=== PATIENT | male | born 1950 | race African-American/Black ===

== ENCOUNTER 2019-06-11 18:26 | Emergency (ER) | payer MEDICARE, OTHER ==
[~2019-06-11] VITALS: Ht 180.3 cm; Wt 103.0 kg
--- NOTE | 2019-06-11 18:48 | NUR ---
PT TO ROOM WITH STRONG, STEADY GAIT. DRESSED IN GOWN. ATTACHED TO MONITORS. PT MADE AWARE OF NEED FOR URINE SAMPLE. VERBALIZES UNDERSTANDING. DENIES ANY NEEDS OR CONCERNS AT THIS TIME. CALL LIGHT IN REACH.
--- NOTE | 2019-06-11 19:00 | NUR ---
REPORT FROM YOAN THOMAS. PT SITTING UP IN [facility] NOTED. PT DENIES PAIN AT THIS TIME BUT ENDORSES INCREASED URGENCY/FREQUENCY X SEVERAL DAYS. PT ADMITS RECENT UNPROTECTED SEX BUT DENIES PENIAL DC/OPEN SORES. PT REPORTS LAST STD CHECK IN WITH NEGATIVE RESULTS. PT AMBULATED STEADILY TO RESTROOM TO PROVIDE UA. UA & GC/CHLAM (UA) ORDERED AND SENT TO LAB. BP/SPO2 MONITORING IN PLACE.
[2019-06-11 19:24] LABS: MICROSCOPIC INDICATED
[2019-06-11 19:25] LABS: CULTURE INDICATED? NO
[2019-06-11] MEDS ORDERED: AZITHROMYCIN 250 MG TABLET ONE (19:37)
[2019-06-11] MEDS ORDERED: CEFTRIAXONE 250 MG ONE (19:37)
[2019-06-11 19:47] VITALS: BP 140/90
--- NOTE | 2019-06-11 19:48 | NUR ---
PT MEDICATED PER EMAR. AWAITING DC INSTRUCTIONS
[2019-06-11] MEDS ORDERED: AZITHROMYCIN 500 MG TABLET PO ONE (20:00)
[2019-06-11] MEDS ORDERED: CEFTRIAXONE 250 MG IM ONE (20:00)
--- NOTE | 2019-06-11 20:03 | NUR ---
NO S/S OF ABX RXN NOTED. DC EDUCATION PROVIDED, PT DEMONSTRATES UNDERSTANDING. PT AMBULATED STEADILY TO DC WITH RN
== END 2019-06-11 20:04 | disposition home or self-care (01) ==
LOC: ED 19:58
DX: R30.0 Dysuria (principal); I10 Essential (primary) hypertension
CPT/HCPCS: 81001; 87491; 87591; 96372; 99283; J0696

== ENCOUNTER 2019-07-25 17:25 | Emergency (ER) | payer MEDICARE, OTHER ==
[~2019-07-25] VITALS: Ht 180.3 cm; Wt 101.9 kg
[2019-07-25 17:32] VITALS: BP 139/89
--- NOTE | 2019-07-25 18:54 | NUR ---
report to Amy MILTON
--- NOTE | 2019-07-25 18:54 | NUR ---
Pt here for community resources. Pt reports no injuries. Pt reports he is concenre for his health and needs community resources.
== END 2019-07-25 19:13 | disposition home or self-care (01) ==
LOC: ED 18:55
DX: F32.9 Major depressive disorder, single episode, unspecified (principal); F43.0 Acute stress reaction; I10 Essential (primary) hypertension; E11.9 Type 2 diabetes mellitus without complications
CPT/HCPCS: 82962; 99284

== ENCOUNTER 2019-08-05 11:57 | Emergency (ER) | payer MEDICARE ==
[~2019-08-05] VITALS: Ht 180.3 cm; Wt 99.0 kg
[2019-08-05 12:47] VITALS: BP 118/75
--- NOTE | 2019-08-05 13:52 | NUR ---
RESTORATIVE CARE TECHNICIAN: PT WALKED BACK FROM LOBBY TO ROOM. STEADY UPON AMBULATION. NO ACUTE DISTRESS NOTED AT THIS TIME.
[2019-08-05] MEDS ORDERED: hydrOXyzine 10MG TABLET PO ONE (14:00)
== END 2019-08-05 14:26 | disposition home or self-care (01) ==
LOC: ED 14:20
DX: F41.1 Generalized anxiety disorder (principal); Z76.0 Encounter for issue of repeat prescription; E11.9 Type 2 diabetes mellitus without complications; I10 Essential (primary) hypertension; Z87.891 Personal history of nicotine dependence
CPT/HCPCS: 99283; Q0177; 99285

== ENCOUNTER 2019-12-28 14:39 | Emergency (ER) | payer MEDICARE ==
[~2019-12-28] VITALS: Ht 180.3 cm; Wt 102.2 kg
[~2019-12-28 14:39] MED LIST: ACET325T26 PO; CYCL-259 PO; DOXA2TAB PO; INSU100V8 SQ; LISI-167 PO; METF500T17 PO; METO25TA91 PO; OXYC5TAB2 BC
--- NOTE | 2019-12-28 15:15 | NUR ---
PT WITH C/O SUBSTERNAL CP BEGINNING AT 0200 THIS AM, PT STATES ITS "MORE OF A TIGHTNESS BUT THOUGHT WE COULD CHECK IT OUT HERE" PT DENIES SOB, PALPITATION. PT TO BP, CONT PULSE OX
[2019-12-28 15:32] LABS: BASOPHILS # (AUTO) 0.04 x10^3/uL (0-0.1); BASOPHILS % (AUTO) 1 % (0-1); EOSINOPHILS # (AUTO) 0.14 x10^3/uL (0-0.4); EOSINOPHILS % (AUTO) 2 % (1-7); LYMPHOCYTES # (AUTO) 1.94 x10^3/uL (1-3.4); LYMPHOCYTES % (AUTO) 29 % (22-44); MD NO; MEAN CORPUSCULAR HEMOGLOBIN 30.1 pg (27.5-34.5); MEAN CORPUSCULAR HGB CONC 33.1 g/dL (33.2-36.2); MEAN PLATELET VOLUME 7.9 fL (7.4-10.4); MONOCYTES # (AUTO) 0.53 x10^3/uL (0.2-0.8); MONOCYTES % (AUTO) 8 % (2-9); NEUTROPHILS % (AUTO) 61 % (42-75); PLATELET COUNT 297 x10^3/uL (130-400); RED BLOOD COUNT 4.72 x10^6/uL (4.38-5.82); RED CELL DISTRIBUTION WIDTH 13.2 % (9.4-14.8)
[2019-12-28 15:36] LABS: ALANINE AMINOTRANSFERASE 21 U/L (12-78); ALBUMIN 3.6 g/dL (3.4-5.0); ANION GAP 4 mmol/L (5-15); CALCIUM 8.9 mg/dL (8.5-10.1); CHLORIDE 110 mmol/L (98-107); CREATININE 1.37 mg/dL (0.7-1.3)
[2019-12-28 15:41] LABS: ALKALINE PHOSPHATASE 123 U/L (45-117); BILIRUBIN,TOTAL 0.5 mg/dL (0.2-1.0); TOTAL PROTEIN 7.3 g/dL (6.4-8.2); TROPONIN I < 0.015 ng/mL (0.000-0.045)
[2019-12-28 16:04] VITALS: BP 111/74
== END 2019-12-28 17:27 | disposition home or self-care (01) ==
LOC: ED 16:10
DX: R07.89 Other chest pain (principal); R05 Cough; I10 Essential (primary) hypertension; E11.9 Type 2 diabetes mellitus without complications; R94.31 Abnormal electrocardiogram [ECG] [EKG]; E78.00 Pure hypercholesterolemia, unspecified; E78.5 Hyperlipidemia, unspecified; Z95.0 Presence of cardiac pacemaker
CPT/HCPCS: 36415; 71046; 80053; 83735; 84484; 85025; 93005; 99285

== ENCOUNTER 2020-04-18 14:10 | Emergency (ER) | payer MEDICARE ==
[~2020-04-18] VITALS: Ht 175.3 cm; Wt 101.3 kg
[2020-04-18] MEDS ORDERED: KETOROLAC 30 MG/1 ML IM ONE (14:30)
[2020-04-18] MEDS ORDERED: KETOROLAC 30 MG/1 ML ONE (14:36)
[2020-04-18 14:41] LABS: MICROSCOPIC NOT IND
[2020-04-18 14:50] LABS: BASOPHILS % (AUTO) 0 % (0-1); EOSINOPHILS % (AUTO) 2 % (1-7); LYMPHOCYTES % (AUTO) 27 % (22-44); MEAN CORPUSCULAR HEMOGLOBIN 29.6 pg (27.5-34.5); MEAN CORPUSCULAR HGB CONC 32.8 g/dL (33.2-36.2); MEAN PLATELET VOLUME 7.8 fL (7.4-10.4); MONOCYTES % (AUTO) 8 % (2-9); NEUTROPHILS % (AUTO) 63 % (42-75); PLATELET COUNT 305 x10^3/uL (130-400); RED BLOOD COUNT 5.02 x10^6/uL (4.38-5.82); RED CELL DISTRIBUTION WIDTH 13.5 % (9.4-14.8)
[2020-04-18 14:54] LABS: MD NO
[2020-04-18 15:02] LABS: CHLORIDE 109 mmol/L (98-107)
[2020-04-18 15:08] LABS: ALANINE AMINOTRANSFERASE 21 U/L (12-78); ALBUMIN 3.8 g/dL (3.4-5.0); ALKALINE PHOSPHATASE 134 U/L (45-117); ANION GAP 6 mmol/L (5-15); BILIRUBIN,TOTAL 0.5 mg/dL (0.2-1.0); CALCIUM 8.9 mg/dL (8.5-10.1); CREATININE 1.35 mg/dL (0.7-1.3); TOTAL PROTEIN 7.6 g/dL (6.4-8.2)
[2020-04-18 16:08] VITALS: BP 154/56
== END 2020-04-18 16:13 | disposition home or self-care (01) ==
LOC: ED 15:41
DX: S29.012A Strain of muscle and tendon of back wall of thorax, initial encounter (principal); K80.20 Calculus of gallbladder without cholecystitis without obstruction; E11.9 Type 2 diabetes mellitus without complications; E78.5 Hyperlipidemia, unspecified; I10 Essential (primary) hypertension; Z95.0 Presence of cardiac pacemaker; X58.XXXA Exposure to other specified factors, initial encounter; Y93.89 Activity, other specified; Y92.89 Other specified places as the place of occurrence of the external cause; Y99.8 Other external cause status
CPT/HCPCS: 36415; 74176; 80053; 81003; 83690; 85025; 96372; 99284; J1885

== ENCOUNTER 2020-08-19 14:23 | Emergency (ER) | payer MEDICARE ==
[~2020-08-19] VITALS: Ht 180.3 cm; Wt 101.1 kg
[~2020-08-19 14:23] MED LIST changes: -CYCL-259 PO; +CYCL10TA2 PO
[2020-08-19] MEDS ORDERED: ASPIRIN 81 MG TABLET CHEW ONE (14:59)
[2020-08-19] MEDS ORDERED: ASPIRIN 81 MG TABLET CHEW PO ONE (15:00)
[2020-08-19 15:05] VITALS: BP 96/72
--- NOTE | 2020-08-19 15:06 | NUR ---
PT IN BED, ASP ADMIN
[2020-08-19 15:18] LABS: BASOPHILS % (AUTO) 1 % (0-1); EOSINOPHILS % (AUTO) 2 % (1-7); LYMPHOCYTES % (AUTO) 33 % (22-44); MEAN CORPUSCULAR HEMOGLOBIN 30.9 pg (27.5-34.5); MEAN CORPUSCULAR HGB CONC 34.4 g/dL (33.2-36.2); MEAN PLATELET VOLUME 7.6 fL (7.4-10.4); MONOCYTES % (AUTO) 10 % (2-9); NEUTROPHILS % (AUTO) 54 % (42-75); PLATELET COUNT 306 x10^3/uL (130-400); RED BLOOD COUNT 4.59 x10^6/uL (4.38-5.82); RED CELL DISTRIBUTION WIDTH 13.2 % (9.4-14.8)
[2020-08-19 15:19] LABS: MD NO
[2020-08-19 15:30] LABS: ALANINE AMINOTRANSFERASE 23 U/L (12-78); ALBUMIN 3.8 g/dL (3.4-5.0); ANION GAP 7 mmol/L (5-15); CALCIUM 8.7 mg/dL (8.5-10.1); CHLORIDE 107 mmol/L (98-107); CREATININE 1.12 mg/dL (0.7-1.3)
[2020-08-19 15:34] LABS: ALKALINE PHOSPHATASE 122 U/L (45-117); BILIRUBIN,TOTAL 0.8 mg/dL (0.2-1.0); TOTAL PROTEIN 7.4 g/dL (6.4-8.2); TROPONIN I < 0.015 ng/mL (0.000-0.045)
== END 2020-08-19 16:38 | disposition home or self-care (01) ==
LOC: ED 15:32
DX: R07.2 Precordial pain (principal); R07.89 Other chest pain; E11.9 Type 2 diabetes mellitus without complications; R94.31 Abnormal electrocardiogram [ECG] [EKG]; E78.5 Hyperlipidemia, unspecified; E78.00 Pure hypercholesterolemia, unspecified; Z95.0 Presence of cardiac pacemaker
CPT/HCPCS: 36415; 71045; 80053; 84484; 85025; 93005; 99284; 99285

== ENCOUNTER 2020-10-26 09:23 | Emergency (ER) | payer MEDICARE ==
[~2020-10-26] VITALS: Ht 180.3 cm; Wt 101.1 kg
[2020-10-26 09:25] VITALS: BP 126/83
[2020-10-26] MEDS ORDERED: IBUPROFEN 200 MG TABLET ONE (09:44)
[2020-10-26] MEDS: IBUPROFEN 200 MG TABLET PO ONE ×2 (09:47→09:48)
[2020-10-26] MEDS ORDERED: KETOROLAC 30 MG/1 ML IM ONE (10:30)
== END 2020-10-26 10:39 | disposition home or self-care (01) ==
LOC: ED 10:33
DX: S16.1XXA Strain of muscle, fascia and tendon at neck level, initial encounter (principal); I10 Essential (primary) hypertension; E11.9 Type 2 diabetes mellitus without complications; E78.5 Hyperlipidemia, unspecified; Z87.891 Personal history of nicotine dependence; V49.49XA Driver injured in collision with other motor vehicles in traffic accident, initial encounter; Y93.89 Activity, other specified; Y92.410 Unspecified street and highway as the place of occurrence of the external cause; Y99.8 Other external cause status
CPT/HCPCS: 72050; 99283

== ENCOUNTER → 2021-01-19 | Outpatient (CLI) | payer MEDICARE ==
[~2021-01-19] MED LIST changes: +REGADENOSON 0.4 MG/5 ML SYRINGE ONE
== END | disposition home or self-care (01) ==
LOC: CFH 07:36
PROVIDERS: ATTEND Internal Medicine Cardiovascular Disease
DX: I44.2 Atrioventricular block, complete (principal); I47.1 Supraventricular tachycardia
CPT/HCPCS: 78452; 93017; A9502; J2785